=== PATIENT | female | born 1990 | race Caucasian/White ===

== ENCOUNTER 2018-01-07 19:32 | Emergency (ER) | payer OTHER ==
[2018-01-07] MEDS: DIPHENHYDRAMINE 50 MG CAP PO (20:49)
[2018-01-07] MEDS: predniSONE 20 MG TAB PO (20:49)
== END 2018-01-07 21:01 | disposition home or self-care (01) ==
LOC: FTE 19:32
DX: L50.0 Allergic urticaria (principal)
CPT/HCPCS: 99283; J7512

== ENCOUNTER 2018-01-09 01:18 | Emergency (ER) | payer OTHER ==
[2018-01-09] MEDS: METHYLPREDNISOLONE 125 MG INJ IV (02:14)
[2018-01-09] MEDS: SOD CHLORIDE 0.9% 1,000 ML IV (02:14)
[2018-01-09] MEDS: FAMOTIDINE 20 MG INJ IV (02:15)
[2018-01-09] MEDS: DIPHENHYDRAMINE 50 MG INJ IV (02:15)
== END 2018-01-09 03:14 | disposition home or self-care (01) ==
LOC: FTE 03:14
DX: R21 Rash and other nonspecific skin eruption (principal)
CPT/HCPCS: 96361; 96374; 96375; 99284-25; J1200

== ENCOUNTER 2018-08-30 13:37 | Emergency (ER) | payer OTHER ==
[2018-08-30] MEDS: KETOROLAC 30 MG INJ IM (15:19)
== END 2018-08-30 15:30 | disposition home or self-care (01) ==
LOC: FTE 13:37
DX: S16.1XXA Strain of muscle, fascia and tendon at neck level, initial encounter (principal); S39.012A Strain of muscle, fascia and tendon of lower back, initial encounter; S20.01XA Contusion of right breast, initial encounter; V49.40XA Driver injured in collision with unspecified motor vehicles in traffic accident, initial encounter
CPT/HCPCS: 71045; 81025; 96372; 99284-25